=== PATIENT | male | born 1955 | race African-American/Black ===

== ENCOUNTER 2019-08-25 07:30 | Emergency (ER) | payer MEDICARE, MEDICAID ==
[~2019-08-25] VITALS: Ht 182.9 cm; Wt 109.0 kg
[2019-08-25] MEDS ORDERED: METHYLPREDNISOLONE SOD SUCC 125 MG/2 ML VIAL IV ONE (08:00)
[2019-08-25] MEDS ORDERED: FAMOTIDINE 20MG/2ML VIAL IV ONE (08:00)
[2019-08-25 08:18] LABS: BASOPHILS % 0.4 % (0.0-2.0); EOSINOPHILS % 0.1 % (0.0-5.0); HEMATOCRIT. 45.6 % (42.0-52.0); HEMOGLOBIN. 15.3 g/dL (14.0-18.0); LYMPHOCYTES % 22.7 % (20.0-50.0); MEAN CORPUSCULAR HEMOGLOBIN 29.6 pg (28.0-32.0); MEAN CORPUSCULAR VOLUME 88.2 fL (80.0-94.0); MEAN PLATELET VOLUME 7.9 fl (7.4-10.4); NEUTROPHILS % 71.8 % (40.0-76.0); PLATELET 244 x1000/uL (130-400); RED BLOOD CELL COUNT 5.17 mill/uL (4.7-6.1); RED CELL DISTRIBUTION WIDTH 15.5 % (11.6-14.6)
[2019-08-25 08:23] LABS: CHLORIDE 108 mEq/L (98-107)
[2019-08-25 09:45] VITALS: BP 106/54
== END 2019-08-25 09:53 | disposition home or self-care (01) ==
LOC: ER 07:30
DX: L50.0 Allergic urticaria (principal); I10 Essential (primary) hypertension; T78.49XA Other allergy, initial encounter
CPT/HCPCS: 36415; 71045; 80053; 85025; 93005; 96374; 96375; 99285; J2930; J3490

== ENCOUNTER 2021-04-01 06:33 | Inpatient (IN) | payer MEDICARE, MEDICAID ==
[~2021-04-01] VITALS: Ht 185.4 cm; Wt 167.9 kg
[2021-04-01] MEDS ORDERED: ONDANSETRON HCL 4MG/2ML INJ IV STA (06:51)
[2021-04-01 09:03] LABS: BASOPHILS % 0.4 % (0.0-2.0); EOSINOPHILS % 0.5 % (0.0-5.0); HEMATOCRIT. 39.6 % (42.0-52.0); HEMOGLOBIN. 12.9 g/dL (14.0-18.0); LYMPHOCYTES % 20.4 % (20.0-50.0); MEAN CORPUSCULAR VOLUME 88.9 fL (80.0-94.0); MEAN PLATELET VOLUME 7.6 fl (7.4-10.4); MONOCYTES % 6.2 % (2.0-8.0); NEUTROPHILS % 72.5 % (40.0-76.0); PLATELET 221 x1000/uL (130-400); RED BLOOD CELL COUNT 4.46 mill/uL (4.7-6.1); RED CELL DISTRIBUTION WIDTH 15.1 % (11.6-14.6)
[2021-04-01 09:10] LABS: CHLORIDE 109 mEq/L (98-107)
[2021-04-01] MEDS ORDERED: SODIUM CHLORIDE 0.9% 1,000 ML IV ONE (11:30)
[2021-04-01] MEDS ORDERED: MECLIZINE 25MG TABLET PO ONE (11:30)
[2021-04-01] MEDS ORDERED: MAGNESIUM/ALUMINUM HYDROXIDE/SIMETHICONE 30ML UDC PO PRN (14:00)
[2021-04-01] MEDS ORDERED: HYDROCODONE/ACETAMINOPHEN 5/325MG TABLET PO PRN (14:00)
[2021-04-01] MEDS ORDERED: NA PHOS,M-B/NA PHOS,DI-BA ENEMA 118ML PR PRN (14:00)
[2021-04-01] MEDS ORDERED: ACETAMINOPHEN 325MG TABLET PO PRN (14:00)
[2021-04-01] MEDS ORDERED: LORAZEPAM 0.5MG TABLET PO PRN (14:00)
[2021-04-01] MEDS ORDERED: ACETAMINOPHEN 650MG SUPP PR PRN (14:00)
[2021-04-01] MEDS ORDERED: DIPHENHYDRAMINE 50MG/ML VIAL IV PRN (14:00)
[2021-04-01] MEDS ORDERED: GUAIFENESIN 200MG/10ML SUGAR FREE UDC PO PRN (14:00)
[2021-04-01] MEDS ORDERED: DOCUSATE SODIUM 100MG CAPSULE PO PRN (14:00)
[2021-04-01] MEDS ORDERED: MORPHINE SULFATE 2 MG/ML CPJ (NOT FOR IM USE) IV PRN (14:00)
[2021-04-01] MEDS ORDERED: ONDANSETRON HCL 4MG/2ML INJ IV PRN (14:00)
[2021-04-01] MEDS ORDERED: IPRATROPIUM/ALBUTEROL 0.5-3(2.5)MG/3ML NEB NEB PRN (14:00)
[2021-04-01] MEDS ORDERED: MECLIZINE 25MG TABLET PO PRN (14:15)
[2021-04-01] MEDS ORDERED: CEFTRIAXONE 1 G PREMIX 50 ML IV SCH (15:00)
[2021-04-01] MEDS ORDERED: NALOXONE HCL 0.4MG/ML VIAL IV PRN (15:15)
[2021-04-01] MEDS ORDERED: IOHEXOL-350 100 ML BOTTLE ONE (15:16)
[2021-04-01] MEDS: AMLODIPINE 5MG TABLET PO SCH (15:33)
[2021-04-01] MEDS: SODIUM CHLORIDE 0.45% 1,000 ML IV SCH (15:34)
[2021-04-01] MEDS ORDERED: AZITHROMYCIN 500MG/250ML 250 ML IV SCH (16:00)
[2021-04-01 16:12] LABS: CLARITY URINE CLEAR (CLEAR); COLOR URINE YELLOW (YELLOW); KETONES URINE NEGATIVE (NEGATIVE); LEUKOCYTE ESTERASE URINE NEGATIVE (NEGATIVE); NITRITE URINE NEGATIVE (NEGATIVE); OCCULT BLOOD URINE NEGATIVE (NEGATIVE); PH URINE 7.5 (4.5-8.0); PROTEIN URINE TRACE (NEGATIVE); SPECIFIC GRAVITY URINE 1.043 (1.005-1.030)
[2021-04-01 17:00] LABS: INR 1.7; PROTHROMBIN TIME 17.1 sec (9.6-11.0)
[2021-04-01 17:03] LABS: CREATINE KINASE 341 IU/L (39-308)
[2021-04-01 17:04] LABS: CREATINE KINASE MB FRACTION 4.2 ng/mL (0.5-3.6)
[2021-04-01 17:45] LABS: *BENZODIAZEPINES SCREEN URINE NEGATIVE (NEGATIVE)
[2021-04-01 17:46] LABS: *AMPHETAMINES SCREEN URINE NEGATIVE (NEGATIVE); *COCAINE SCREEN URINE NEGATIVE (NEGATIVE); CANNABINOID URINE SCREEN NEGATIVE (NEGATIVE); METHADONE URINE SCREEN NEGATIVE (NEGATIVE); OPIATES URINE SCREEN NEGATIVE (NEGATIVE); PHENCYCLIDINE URINE SCREEN NEGATIVE (NEGATIVE)
[2021-04-01 17:47] LABS: *BARBITURATES SCREEN URINE NEGATIVE (NEGATIVE)
[2021-04-01] MEDS: ENOXAPARIN 120MG/0.8ML SYR SUBCUT SCH (19:21)
[2021-04-01] MEDS: FAMOTIDINE 20MG TABLET PO SCH (21:00)
[2021-04-01 23:53] LABS: CREATINE KINASE 357 IU/L (39-308)
[2021-04-01 23:54] LABS: CREATINE KINASE MB FRACTION 3.7 ng/mL (0.5-3.6)
[2021-04-02] MEDS: CLONIDINE 0.1MG TABLET PO PRN ×2 (04:22→17:22)
[2021-04-02 06:13] LABS: BASOPHILS % 0.5 % (0.0-2.0); EOSINOPHILS % 0.7 % (0.0-5.0); LYMPHOCYTES % 28.4 % (20.0-50.0); MEAN CORPUSCULAR HEMOGLOBIN 30.2 pg (28.0-32.0); MEAN CORPUSCULAR VOLUME 87.9 fL (80.0-94.0); MEAN PLATELET VOLUME 7.9 fl (7.4-10.4); MONOCYTES % 8.3 % (2.0-8.0); NEUTROPHILS % 62.1 % (40.0-76.0); PLATELET 227 x1000/uL (130-400); RED BLOOD CELL COUNT 4.32 mill/uL (4.7-6.1); RED CELL DISTRIBUTION WIDTH 15.4 % (11.6-14.6)
[2021-04-02 06:21] LABS: INR 1.7; PROTHROMBIN TIME 17.7 sec (9.6-11.0)
[2021-04-02 06:22] LABS: CHLORIDE 111 mEq/L (98-107)
[2021-04-02] MEDS: SODIUM CHLORIDE 0.45% 1,000 ML IV SCH (07:54)
[2021-04-02] MEDS ORDERED: POTASSIUM CHLORIDE 20MEQ TABLET SR PO NR (09:15)
[2021-04-02] MEDS: ENOXAPARIN 120MG/0.8ML SYR SUBCUT SCH ×2 (09:34→17:13)
[2021-04-02] MEDS: ASPIRIN 81MG EC TABLET PO SCH (09:39)
[2021-04-02] MEDS: AMLODIPINE 5MG TABLET PO SCH (09:39)
[2021-04-02] MEDS ORDERED: MAGNESIUM 2 G PREMIX 50 ML IV NR (11:00)
[2021-04-02 12:00] VITALS: BP_SYST 118; BP_SYST 146; BP_SYST 158; BP_DIAS 50; BP_DIAS 91; BP_DIAS 96
[2021-04-02 15:23] VITALS: BP 118/50
[2021-04-02] MEDS: CEFTRIAXONE 1,000 MG in DEXTROSE 5% WATER 50 ML IV SCH (15:55)
[2021-04-02 16:00] VITALS: BP 165/71
[2021-04-02] MEDS ORDERED: AZITHROMYCIN 500MG in DEXTROSE 5% WATER 250ML IV SCH (16:00)
[2021-04-02 20:00] VITALS: BP 119/68
[2021-04-02] MEDS: FAMOTIDINE 20MG TABLET PO SCH (22:53)
[2021-04-03] VITALS: BP 138/63
[2021-04-03] MEDS: IPRATROPIUM/ALBUTEROL 0.5-3(2.5)MG/3ML NEB NEB SCH ×3 (02:21→14:13)
[2021-04-03] MEDS: SODIUM CHLORIDE 0.45% 1,000 ML IV SCH ×2 (02:25→16:06)
[2021-04-03 04:00] VITALS: BP 158/93
[2021-04-03] MEDS: ENOXAPARIN 120MG/0.8ML SYR SUBCUT SCH (06:52)
[2021-04-03 08:00] VITALS: BP 133/64
[2021-04-03 08:18] LABS: INR 1.6; PROTHROMBIN TIME 16.4 sec (9.6-11.0)
[2021-04-03 08:22] LABS: CHLORIDE 111 mEq/L (98-107)
[2021-04-03 08:40] LABS: HEMATOCRIT. 39.2 % (42.0-52.0); HEMOGLOBIN. 13.2 g/dL (14.0-18.0); MEAN CORPUSCULAR HEMOGLOBIN 29.8 pg (28.0-32.0); MEAN CORPUSCULAR VOLUME 88.3 fL (80.0-94.0); MEAN PLATELET VOLUME 8.8 fl (7.4-10.4); PLATELET 205 x1000/uL (130-400); RED BLOOD CELL COUNT 4.44 mill/uL (4.7-6.1); RED CELL DISTRIBUTION WIDTH 15.2 % (11.6-14.6)
[2021-04-03] MEDS: ASPIRIN 81MG EC TABLET PO SCH (09:27)
[2021-04-03] MEDS: AMLODIPINE 5MG TABLET PO SCH (09:28)
[2021-04-03] MEDS ORDERED: MAGNESIUM 2 G PREMIX 50 ML IV SCH (10:00)
[2021-04-03 12:30] VITALS: BP 159/87
[2021-04-03 15:56] VITALS: BP 152/76
[2021-04-03] MEDS: CEFTRIAXONE 1,000 MG in DEXTROSE 5% WATER 50 ML IV SCH (16:03)
[2021-04-03 16:15] VITALS: BP 152/76
[2021-04-03 16:52] LABS: PLATELET ESTIMATE NORMAL
[2021-04-03] MEDS ORDERED: ENOXAPARIN 150MG/ML SYR SUBCUT SCH (18:00)
[2021-04-04] MEDS ORDERED: AZITHROMYCIN 500 MG TABLET PO SCH (09:00)
== END 2021-04-03 18:50 | disposition home or self-care (01) | DRG 176 ==
LOC: ER 06:33 → MICUSO 11:03 → SUPCPDRO 14:11 → 8WST 04-02 11:55
PROVIDERS: ADMIT Internal Medicine; ATTEND Internal Medicine
DX: I26.94 Multiple subsegmental thrombotic pulmonary emboli without acute cor pulmonale (principal); D68.9 Coagulation defect, unspecified; Z68.42 Body mass index [BMI] 45.0-49.9, adult; G90.8 Other disorders of autonomic nervous system; E66.9 Obesity, unspecified; D64.9 Anemia, unspecified; E86.0 Dehydration; I10 Essential (primary) hypertension; I16.0 Hypertensive urgency; Z20.822 Contact with and (suspected) exposure to COVID-19; I25.10 Atherosclerotic heart disease of native coronary artery without angina pectoris; I73.9 Peripheral vascular disease, unspecified; Z87.891 Personal history of nicotine dependence; Z86.718 Personal history of other venous thrombosis and embolism; Z79.01 Long term (current) use of anticoagulants; I25.2 Old myocardial infarction
CPT/HCPCS: 36415; 71045; 71275; 74176; 80048; 80053; 80061; 80305; 81003; 82550; 82553; 83735; 83880; 84443; 84484; 85025; 87426; 93005; 93306; 93880; 93923; 93970; 94640; 99285; J0456; J0696; J1650; J2405; J3475; J7030; J7040; J7060; J8597; Q9967